=== PATIENT | male | born 1970 ===

== ENCOUNTER → 2024-01-14 | Emergency (ER) ==
[~2024-01-14] VITALS: Ht 190.5 cm; Wt 131.5 kg
== END | disposition home or self-care (01) ==
LOC: ER 13:55
DX: M25.561 Pain in right knee (principal); X50.1XXA Overexertion from prolonged static or awkward postures, initial encounter; Y93.01 Activity, walking, marching and hiking; Y92.89 Other specified places as the place of occurrence of the external cause; Z85.528 Personal history of other malignant neoplasm of kidney; Z87.820 Personal history of traumatic brain injury; F17.210 Nicotine dependence, cigarettes, uncomplicated